=== PATIENT | female | born 1995 | race Caucasian/White ===

== ENCOUNTER 2022-01-16 12:13 | Emergency (ER) | payer OTHER ==
[2022-01-16 12:36] VITALS: BP 126/85; PULSE 97; RESP 19; TEMP 98.1; BMI 20.5
[2022-01-16] MEDS ORDERED: ONDANSETRON *ODT* 4 MG TABLET SL ONE (13:35)
[2022-01-16] MEDS ORDERED: FAMOTIDINE 20 MG TABLET PO ONE (13:35)
[2022-01-16] MEDS ORDERED: LORazepam 2 MG TABLET PO ONE (13:35)
[2022-01-16] MEDS ORDERED: MAG HYDROX/AL HYDROX/SIMETH 30 ML UNIT-DOSE CUP PO ONE (13:35)
[2022-01-16] MEDS ORDERED: FAMOTIDINE 20 MG TABLET ONE (13:49)
[2022-01-16] MEDS ORDERED: ONDANSETRON *ODT* 4 MG TABLET ONE (13:50)
[2022-01-16] MEDS ORDERED: MAG HYDROX/AL HYDROX/SIMETH 30 ML UNIT-DOSE CUP ONE (13:50)
[2022-01-16] MEDS ORDERED: LORazepam 1 MG TABLET ONE (13:50)
== END 2022-01-16 15:18 | disposition home or self-care (01) ==
LOC: JER 12:13
DX: F41.9 Anxiety disorder, unspecified (principal)
CPT/HCPCS: 99283-25; Q0162